=== PATIENT | female | born 1970 | race African-American/Black ===

== ENCOUNTER 2024-11-02 15:16 | Outpatient (CLI) | payer OTHER | END 2024-11-02 15:17 | disposition home or self-care (01) | LOC: CSHMAMMO 15:16 | PROVIDERS: ATTEND Nurse Practitioner Family | DX: Z12.31 Encounter for screening mammogram for malignant neoplasm of breast (principal); Z80.3 Family history of malignant neoplasm of breast | CPT/HCPCS: 77063; 77067 ==